=== PATIENT | female | born 1955 | race Caucasian/White ===

== ENCOUNTER 2016-11-16 07:32 | Day surgery (SDC) | payer OTHER ==
[2016-11-13 15:46] VITALS: BMI 21.8
[2016-11-16] MEDS ORDERED: LIDOCAINE HCL/PF 2% SDV 5ML VIAL ONE (08:37)
[2016-11-16] MEDS ORDERED: PROPOFOL 20 ML ONE ×2 (08:37)
[2016-11-16] MEDS ORDERED: ONABOTULINUMTOXINA 200 UNIT/VIAL VIAL NR ONE (09:00)
[2016-11-16 09:40] VITALS: TEMP 97.6
[2016-11-16 10:46] VITALS: BP 109/68; PULSE 61
--- NOTE | 2016-11-17 12:20 | PATH ---
Surgical Pathology Report Patient Name: HUDSON MCKINLEY [facility]. Rec. #: [id number] /Age/Gender: 1955 (Age: 61) / F Account: [id number] Location: U-ENDOSCOPY Taken: 11/16/2016 Received: 11/16/2016 Reported: 11/17/2016 Physicians: Mayito Solis M.D. Specimen(s) Received A: BX DUODENUM B: BX ANTRUM C: BX GE JUNCTION Clinical History GERD, constipation, Levy syndrome Erosive gastritis, flattened duodenal folds, redundant colon and poor prep Final Diagnosis A. DUODENUM, BIOPSY: DUODENAL MUCOSA WITH MILD CHRONIC INFLAMMATION; PRESERVED VILLOUS ARCHITECTURE. NO HISTOLOGIC EVIDENCE OF GLUTEN SENSITIVE ENTEROPATHY (CELIAC DISEASE). B. STOMACH, ANTRUM, BIOPSY: GASTRIC OXYNTIC AND ANTRAL MUCOSA WITH MODERATE CHRONIC GASTRITIS. IMMUNOSTAIN FOR H. PYLORI IS NEGATIVE FOR ORGANISMS. C. GE JUNCTION, BIOPSY: SQUAMOCOLUMNAR JUNCTIONAL MUCOSA WITH CHRONIC INFLAMMATION, REFLUX TYPE CHANGES AND FOCAL INTESTINAL METAPLASIA (CONSISTENT WITH LÓPEZ'S ESOPHAGUS). NEGATIVE FOR DYSPLASIA. Electronically Signed Bruno Ortiz M.D. Gross Description A. Received in formalin, labeled "biopsy duodenum" are 2 thomas, irregular portions of soft tissue measuring 0.2 and 0.4 cm in greatest dimension. The specimens are submitted in toto in one cassette. B. Received in formalin, labeled "biopsy antrum" are 3 thomas, irregular portions of soft tissue ranging from 0.2-0.6 cm in greatest dimension. The specimens are submitted in toto in one cassette. C. Received in formalin, labeled "biopsy GE junction" are 6 thomas, irregular portions of soft tissue ranging from 0.2-0.5 cm in greatest dimension. The specimens are submitted in toto in one cassette. /11/16/2016 saudi11/16/2016
== END 2016-11-16 10:53 | disposition home or self-care (01) ==
LOC: JASU-ENDO 07:32
PROVIDERS: ATTEND Internal Medicine Gastroenterology
PROC: 0DB68ZX Excision of Stomach, Via Natural or Artificial Opening Endoscopic, Diagnostic (ICD-10-PCS; 2016-11-16)
PROC: 0DB58ZX Excision of Esophagus, Via Natural or Artificial Opening Endoscopic, Diagnostic (ICD-10-PCS; 2016-11-16)
PROC: 0DJD8ZZ Inspection of Lower Intestinal Tract, Via Natural or Artificial Opening Endoscopic (ICD-10-PCS; 2016-11-16)
PROC: 0DB98ZX Excision of Duodenum, Via Natural or Artificial Opening Endoscopic, Diagnostic (ICD-10-PCS; principal; 2016-11-16 08:30)
DX: Z12.11 Encounter for screening for malignant neoplasm of colon (principal); Z86.010 Personal history of colon polyps; K59.03 Drug induced constipation; K64.8 Other hemorrhoids; Z53.8 Procedure and treatment not carried out for other reasons; K63.89 Other specified diseases of intestine; K25.9 Gastric ulcer, unspecified as acute or chronic, without hemorrhage or perforation; K29.50 Unspecified chronic gastritis without bleeding; K29.80 Duodenitis without bleeding
CPT/HCPCS: 43239; G0105; 88305-TC; 88342-TC; J0585

== ENCOUNTER 2017-01-11 12:18 | Day surgery (SDC) | payer OTHER ==
[2017-01-11 13:04] VITALS: BMI 21.8
[2017-01-11] MEDS ORDERED: PROPOFOL 20 ML ONE ×2 (13:13)
[2017-01-11 14:17] VITALS: TEMP 97.5
[2017-01-11 15:00] VITALS: BP 129/81; PULSE 64
--- NOTE | 2017-01-13 13:02 | PATH ---
Surgical Pathology Report Patient Name: HUDSON MCKINLEY [facility]. Rec. #: [id number] /Age/Gender: 1955 (Age: 61) / F Account: [id number] Location: U-ENDOSCOPY Taken: 01/11/2017 Received: 01/12/2017 Reported: 01/13/2017 Physicians: Mayito Solis M.D. Specimen(s) Received A: BX SIGMOID POLYP B: BX DESCENDING COLON POLYPS C: BX RECTAL POLYP Clinical History Repeat colonoscopy, history of colon polyp, history of Levy syndrome Redundant colon, chronic constipation, colon polyps (sigmoid, descending and rectum), grade 2 hemorrhoids Final Diagnosis A. COLON, SIGMOID, POLYP, BIOPSY: HYPERPLASTIC POLYP. B. COLON, DESCENDING, POLYPS, BIOPSY: TUBULAR ADENOMA. SEPARATE FRAGMENTS OF HYPERPLASTIC POLYP. C. RECTUM, POLYP, BIOPSY: FRAGMENTS OF HYPERPLASTIC POLYP. Electronically Signed Bruno Ortiz M.D. Gross Description A. Received in formalin, labeled "biopsy sigmoid polyp" is a thomas, irregular portion of soft tissue measuring 0.3 cm in greatest dimension. The specimen is submitted in toto in one cassette. B. Received in formalin, labeled "biopsy descending colon polyps" are 2 thomas, irregular portions of soft tissue measuring 0.2 and 0.3 cm in greatest dimension. The specimens are submitted in toto in one cassette. C. Received in formalin, labeled "biopsy polyp rectum" are 3 thomas, irregular portions of soft tissue averaging 0.1 cm in greatest dimension. The specimens are submitted in toto in one cassette. 01/12/201701/12/2017
== END 2017-01-11 15:20 | disposition home or self-care (01) ==
LOC: JASU-ENDO 12:18
PROVIDERS: ATTEND Internal Medicine Gastroenterology
PROC: 0DBN8ZX Excision of Sigmoid Colon, Via Natural or Artificial Opening Endoscopic, Diagnostic (ICD-10-PCS; 2017-01-11)
PROC: 0DBP8ZX Excision of Rectum, Via Natural or Artificial Opening Endoscopic, Diagnostic (ICD-10-PCS; 2017-01-11)
PROC: 0DBM8ZX Excision of Descending Colon, Via Natural or Artificial Opening Endoscopic, Diagnostic (ICD-10-PCS; principal; 2017-01-11 13:30)
DX: Z12.11 Encounter for screening for malignant neoplasm of colon (principal); Z86.010 Personal history of colon polyps; Z80.0 Family history of malignant neoplasm of digestive organs; K62.1 Rectal polyp; D12.4 Benign neoplasm of descending colon; D12.5 Benign neoplasm of sigmoid colon; K64.8 Other hemorrhoids; K63.89 Other specified diseases of intestine
CPT/HCPCS: 88305-TC